=== PATIENT | male | born 1955 | race Caucasian/White ===

== ENCOUNTER 2020-01-28 06:42 | Outpatient (CLI) | payer BC ==
[2020-01-28 15:14] LABS: Hemoglobin 13.9 g/dL (14.0-18.0); Mean Corpuscular HGB CONC 34.6 G/DL (32.0-36.0); Mean Corpuscular Volume 89.7 fl (80.0-100.0); Mean Platelet Volume 10.2 fl (7.4-10.4); Platelet Count 175 10x3/uL (130-400); Red Blood Cell (RBC) Count 4.48 10x6/uL (4.40-5.80); White Blood Cell (WBC) Count 9.1 10x3/uL (4.5-11.0)
[2020-01-28 15:16] LABS: Bilirubin Neg (Negative); Blood, Urine Negative (Negative); Clarity Clear (Clear); Glucose, Urine (Dipstick) Normal (Negative); Ketone, Urine Negative (Negative); Leukocyte Negative (Negative); Nitrite Negative (Negative); Protein, Urine (Dipstick) 15 mg/dl (Neg-Trace); Urobilinogen Normal mg/dL (Less than 2)
[2020-01-28 15:23] LABS: Anion Gap 13 mmol/L (10-20); BUN (Urea Nitrogen) 16 mg/dL (8.4-25.7); Calc. Creatinine Clearance 0 mL/min (70-130); Calcium 9.5 mg/dL (7.8-10.44); Carbon Dioxide 27 mmol/L (23-31); Chloride 101 mmol/L (98-107); Glucose 132 mg/dL (80-115); Potassium 4.1 mmol/L (3.5-5.1); Sodium 137 mmol/L (136-145)
[2020-01-28 15:27] LABS: PTT 24.8 sec (22.0-33.0); Prothrombin Time 10.5 sec (9.5-12.1)
[2020-01-28 15:56] LABS: Bacteria/HPF None Seen HPF (None Seen); RBC/HPF None Seen HPF (0-3); Squamous Epithelial None Seen HPF (0-3); WBC/HPF None Seen HPF (0-3)
[2020-01-29 02:56] LABS: SARS-CoV-2 MS2 Positive; SARS-CoV-2 N Gene Negative; SARS-CoV-2 S Gene Negative; SARS-CoV-2 by NAA Not Detected (NotDetected); SARS-CoV-2 orf1ab Negative
== END 2020-01-28 06:43 | disposition home or self-care (01) ==
LOC: LABBT 06:42
PROVIDERS: ATTEND Urology
DX: Z01.818 Encounter for other preprocedural examination (principal); N40.1 Benign prostatic hyperplasia with lower urinary tract symptoms; N20.0 Calculus of kidney; E29.1 Testicular hypofunction; N48.6 Induration penis plastica; N52.02 Corporo-venous occlusive erectile dysfunction; Z20.828 Contact with and (suspected) exposure to other viral communicable diseases
CPT/HCPCS: 80048; 81001; 85027; 85610; 85730; 87086; 87635; 93005; 93010; U0003

== ENCOUNTER 2020-01-31 07:14 | Day surgery (SDC) | payer BC ==
[2020-01-30 08:59] VITALS: BMI 24.8
[2020-01-31] MEDS ORDERED: Levofloxacin 500 mg/D5W 100 ml Premix Bag ONE (07:17)
[2020-01-31] MEDS ORDERED: Midazolam HCl 2 mg/2 ml Vial ONE (07:45)
[2020-01-31] MEDS ORDERED: Fentanyl 100 MCG/2 ML VIAL ONE (07:45)
[2020-01-31] MEDS ORDERED: B & O ONE (08:01)
--- NOTE | 2020-01-31 08:56 | OP ---
DATE OF PROCEDURE: 01/31/2020 SERVICE: Urology. PREOPERATIVE DIAGNOSIS: BPH with urinary obstruction. POSTOPERATIVE DIAGNOSIS: BPH and urinary obstruction. PROCEDURE PERFORMED: UroLift procedure with 6 implants, 5 in patient, 1 misfire. INDICATIONS FOR PROCEDURE: Mr. Torres is a 65-year-old white male who initially presented to me with urinary complaints. On cystoscopy, he was noted to have a significant median lobe. He has been on Flomax and finasteride for a prolonged time, but after discussion of options, he elected to proceed forward with UroLift for improvement of urine flow and preservation of sexual side effects. Risks and benefits have been discussed, and he has agreed to proceed forward. DESCRIPTION OF PROCEDURE: After identification of armband and verification of consent, the patient was brought back to the operating room, where he underwent total intravenous anesthesia. He was then placed in a dorsal lithotomy position and prepped and draped in usual sterile fashion. After appropriate time-out, a lubricated 21-Andorran rigid cystoscope with visual obturator was passed through the urethra into the bladder and prostate. The prostate showed obstructive features as it had previously done on outpatient cystoscopy. The visual obturator was switched out for the first UroLift implant. The first implant was positioned proximal to the patient's left bladder neck by coming back 2 cm away from the bladder neck and then performing upward and lateral compression for about 20 degrees. Once this was achieved, the safety was released and then the blue trigger fired to deploy the Nitinol needle. The jackson trigger was squeezed to set the tension and deploy the capsular tab. The UroLift was then advanced forward until the white line could be seen in the keyhole, and then the blue back trigger released for the urethral end piece. This was then repeated on the patient's right bladder neck and then at the left and right apex. One of the implants at the apex had a misfire and had to be redone. At this point, the prostatic fossa was wide open, but the median lobe was occupying the majority of the urethral lumen. There was a better sulcus on the patient's left, so we elected to do compression toward the patient's right. Using a sweet method, the median lobe was compressed over to the contralateral aspect towards the right and withdrawn until the bladder neck could be seen in the camera. Once full compression, extreme angulation was performed to avoid bladder or bladder neck injury with the median lobe. The Nitinol needle was deployed, and then the UroLift implant completely performed within the prostatic lumen without evidence of injury to the bladder or ureters. Upon completion, the prostatic lumen was wide open. I felt very good that this patient should have a good urine flow, and cystoscope was then withdrawn and an 18-Andorran Aguilar catheter was placed back into the patient's bladder. 10 mL of sterile water was placed into the balloon. The patient had B and O suppository, placed in the rectum. He was then taken out of position, awakened, taken to PACU for recovery in stable condition. COMPLICATIONS: None. ESTIMATED BLOOD LOSS: Minimal. RETAINED TUBES AND DRAINS: 18-Andorran Aguilar catheter. SPECIMENS: None. IMPLANTS USED: Six. DISPOSITION: The patient will be discharged home after a void trial. He will then follow up with me on outpatient basis. Job ID: [id number]
[2020-01-31] MEDS ORDERED: HYDROcodone/Acetaminophen 5/325 mg Tablet ONE (08:59)
[2020-01-31] MEDS ORDERED: PROPOFOL 200 MG/20 ML VIAL ONE (09:51)
== END 2020-01-31 12:30 | disposition home or self-care (01) ==
LOC: SDC 07:14
PROVIDERS: ATTEND Urology
PROC: 0T7D8DZ Dilation of Urethra with Intraluminal Device, Via Natural or Artificial Opening Endoscopic (ICD-10-PCS; principal; 2020-01-31)
DX: N40.1 Benign prostatic hyperplasia with lower urinary tract symptoms (principal); N13.8 Other obstructive and reflux uropathy; I10 Essential (primary) hypertension; E78.5 Hyperlipidemia, unspecified; K21.9 Gastro-esophageal reflux disease without esophagitis; N40.0 Benign prostatic hyperplasia without lower urinary tract symptoms; Z79.899 Other long term (current) drug therapy
CPT/HCPCS: C1889; J1956; J2250; J2704; J3010

== ENCOUNTER 2021-12-23 16:17 | Inpatient (IN) | payer MEDICARE ==
[~2021-12-23 16:17] MED LIST: Iopamidol-370 76% 500 ML 1 ML ONE
[2021-12-23 16:54] LABS: #Basophils 0.1 thou/uL (0.0-0.2); #Monocytes 0.5 thou/uL (0.11-0.59); #Neutrophils 3.3 thou/uL (1.40-6.50); %Basophils 1.1 % (0.0-1.0); %Eosinophils 0.8 % (0.0-10.0); %Lymphocytes 20.9 % (21.0-51.0); %Monocytes 9.9 % (0.0-10.0); %Neutrophils 67.3 % (42.0-75.0); Hemoglobin 16.2 g/dL (14.0-18.0); Mean Corpuscular Hemoglobin 30.8 pg (27.0-31.0); Mean Corpuscular Volume 93.2 fl (78.0-98.0); Mean Platelet Volume 7.3 fL (7.4-10.4); Platelet Count 157 thou/uL (130-400); RBC Distribution Width 12.1 % (11.5-14.5); Red Blood Cell (RBC) Count 5.27 mill/uL (4.70-6.10); White Blood Cell (WBC) Count 4.9 thou/uL (4.8-10.8)
[2021-12-23 17:17] LABS: ALT (SGPT) 348 U/L (8-55); AST (SGOT) 156 U/L (5-34); Albumin 4.1 g/dL (3.4-4.8); Alkaline Phosphatase 335 U/L (40-110); Anion Gap 11 mmol/L (10-20); BUN (Urea Nitrogen) 11 mg/dL (8.4-25.7); Calc. Creatinine Clearance 0 mL/min (70-130); Calcium 9.3 mg/dL (7.8-10.44); Carbon Dioxide 32 mmol/L (23-31); Chloride 98 mmol/L (98-107); Estimated GFR 65; Globulin 2.8 g/dL (2.4-3.5); Glucose 120 mg/dL (80-115); Lipase 28 U/L (8-78); Potassium 4.8 mmol/L (3.5-5.1); Protein, Total 6.9 g/dL (5.8-8.1); Sodium 136 mmol/L (136-145)
[2021-12-23] MEDS ORDERED: Ondansetron ODT 4 MG TAB ONE (19:17)
[2021-12-23 19:25] LABS: HBCM Index 0.06 S/CO (0-0.79); HBSAg Index 0.27 S/CO (0-0.99); Hep A IgM AB Non-Reactive (NonReactive); Hep A IgM S/CO 0.13 S/CO (0-0.79); Hep B Surf Ag Non-Reactive S/CO (NonReactive); Hep C IgG Ab Non-Reactive (NonReactive); Hep C Index 0.07 S/CO (0-0.79); Hepatitis B Core IgM Abs Non-Reactive (NonReactive)
[2021-12-23 19:52] LABS: Bacteria/HPF None Seen HPF (None Seen); Bilirubin 1+ (Negative); Blood, Urine 3+ (Negative); Clarity Clear (Clear); Glucose, Urine (Dipstick) Normal (Negative); Ketone, Urine Negative (Negative); Leukocyte Negative Leu/uL (Negative); Nitrite Negative (Negative); Protein, Urine (Dipstick) Negative (Neg-Trace); RBC/HPF Greater than 50 HPF (0-3); Squamous Epithelial None Seen HPF (0-3); WBC/HPF 0-3 HPF (0-3)
[2021-12-23 19:53] LABS: Specific Gravity, Urine 1.056 (1.002-1.036)
[2021-12-23] MEDS ORDERED: Ondansetron PF 4 MG/2 ML Vial ONE (20:44)
[2021-12-23] MEDS ORDERED: Morphine 4 MG/ML VIAL ONE (20:44)
[2021-12-23] MEDS ORDERED: cefTRIAXone\\ROCEPHIN 1 GM VIAL ONE (21:48)
[2021-12-23] MEDS ORDERED: Ondansetron PF 4 MG/2 ML Vial IVP PRN (22:05)
[2021-12-23] MEDS ORDERED: Acetaminophen 325 MG TAB PO PRN (22:05)
[2021-12-23] MEDS ORDERED: HYDROcodone/Acetaminophen 10/325 mg Tablet PO PRN (22:46)
[2021-12-23] MEDS ORDERED: cefTRIAXone\\ROCEPHIN 1 GM in Sodium Chloride 0.9% 100 ML IVPB SCH (23:00)
[2021-12-23] MEDS ORDERED: metroNIDAZOLE 500 MG in Premix Bag 1 BAG IVPB SCH (23:30)
[2021-12-23] MEDS: Sodium Chloride 0.9% 1,000 ML IV SCH (23:59)
[2021-12-24 00:59] VITALS: BMI 23.7
[2021-12-24 01:45] LABS: SARS-CoV-2 NAA Rapid Test Not Detected (NotDetected)
[2021-12-24 05:44] LABS: PTT 27.2 sec (22.9-36.1); Prothrombin Time 13.6 sec (12.0-14.7)
[2021-12-24 05:49] LABS: #Eosinphils 0.1 thou/uL (0.0-0.7); #Lymphocytes 1.1 thou/uL (1.20-3.40); #Monocytes 0.4 thou/uL (0.11-0.59); #Neutrophils 3.3 thou/uL (1.40-6.50); %Basophils 0.4 % (0.0-1.0); %Eosinophils 1.2 % (0.0-10.0); %Monocytes 8.3 % (0.0-10.0); %Neutrophils 67.1 % (42.0-75.0); Hemoglobin 14.5 g/dL (14.0-18.0); Mean Corpuscular HGB CONC 32.7 g/dL (32.0-36.0); Mean Corpuscular Hemoglobin 30.8 pg (27.0-31.0); Mean Corpuscular Volume 94.2 fl (78.0-98.0); Mean Platelet Volume 7.7 fL (7.4-10.4); Platelet Count 131 thou/uL (130-400); White Blood Cell (WBC) Count 4.9 thou/uL (4.8-10.8)
[2021-12-24] MEDS: metroNIDAZOLE 500 MG in Premix Bag 1 BAG IVPB SCH ×3 (05:54→21:13)
[2021-12-24 06:07] LABS: ALT (SGPT) 231 U/L (8-55); AST (SGOT) 76 U/L (5-34); Albumin 3.3 g/dL (3.4-4.8); Alkaline Phosphatase 264 U/L (40-110); Anion Gap 11 mmol/L (10-20); BUN (Urea Nitrogen) 10 mg/dL (8.4-25.7); Bilirubin, Total 1.5 mg/dL (0.2-1.2); Calc. Creatinine Clearance 71 mL/min (70-130); Calcium 8.9 mg/dL (7.8-10.44); Carbon Dioxide 28 mmol/L (23-31); Chloride 100 mmol/L (98-107); Estimated GFR 73; Globulin 2.9 g/dL (2.4-3.5); Glucose 92 mg/dL (80-115); Potassium 4.2 mmol/L (3.5-5.1); Protein, Total 6.2 g/dL (5.8-8.1); Sodium 135 mmol/L (136-145)
[2021-12-24] MEDS ORDERED: Morphine 4 MG/ML VIAL SLOW IVP PRN (07:13)
[2021-12-24] MEDS ORDERED: Acetaminophen 500 MG TAB PO PRN (07:24)
[2021-12-24] MEDS: Tamsulosin HCl 0.4 MG CAP PO SCH (08:19)
[2021-12-24] MEDS: Senokot S 8.6-50 MG TAB PO SCH ×2 (08:19→20:30)
[2021-12-24] MEDS ORDERED: Enoxaparin Sodium 40 MG/0.4 ML SYRINGE SC SCH (09:00)
[2021-12-24] MEDS ORDERED: FLU VACC QS2022-23(65YR UP)/PF 240 MCG/0.7 ML SYRINGE IM ONE (09:00)
[2021-12-24] MEDS ORDERED: Bupivacaine/Epinephrine 0.25% 30 ML VIAL ONE (10:22)
[2021-12-24] MEDS ORDERED: fentaNYL PF 100 MCG/2 ML SYRINGE ONE ×2 (10:25→10:41)
[2021-12-24] MEDS ORDERED: SUGAMMADEX SODIUM 200 MG/2 ML VIAL ONE (10:42)
[2021-12-24] MEDS ORDERED: Ketorolac Tromethamine 30 MG/ML VIAL ONE (11:40)
[2021-12-24] MEDS ORDERED: Dexamethasone 20 MG/5 ML VIAL ONE (11:40)
[2021-12-24] MEDS ORDERED: ePHEDrine 50 MG/ML VIAL ONE (11:40)
[2021-12-24] MEDS ORDERED: Rocuronium Bromide 10 MG/ML (10ML VIAL) ONE (11:40)
[2021-12-24] MEDS ORDERED: Ondansetron PF 4 MG/2 ML Vial ONE (11:40)
[2021-12-24] MEDS ORDERED: PROPOFOL 200 MG/20 ML VIAL ONE (11:40)
[2021-12-24] MEDS ORDERED: Ondansetron HCl/PF 4 MG/2 ML Vial IVP PRN (12:43)
[2021-12-24] MEDS ORDERED: HYDROmorphone 2 MG/ML VIAL SLOW IVP PRN (12:43)
[2021-12-24] MEDS ORDERED: Promethazine HCl 25 MG/ML VIAL IM PRN (12:43)
[2021-12-24] MEDS ORDERED: Promethazine HCl 25 MG/ML VIAL IVPB PRN (12:43)
[2021-12-24] MEDS ORDERED: FENTANYL 50 MCG/ML 1 ML VIAL ONE ×3 (12:50→13:39)
[2021-12-24] MEDS: Sodium Chloride 0.9% 1,000 ML IV SCH (14:56)
[2021-12-24] MEDS: HYDROcodone/Acetaminophen 7.5/325 mg Tablet PO PRN (16:51)
[2021-12-24] MEDS ORDERED: cefTRIAXone\\ROCEPHIN 2 GM in Sodium Chloride 0.9% 100 ML IVPB SCH (21:00)
[2021-12-25] MEDS: Sodium Chloride 0.9% 1,000 ML IV SCH (05:23)
[2021-12-25] MEDS: metroNIDAZOLE 500 MG in Premix Bag 1 BAG IVPB SCH (05:24)
[2021-12-25] MEDS: HYDROcodone/Acetaminophen 7.5/325 mg Tablet PO PRN (05:55)
[2021-12-25 06:12] LABS: #Monocytes 0.6 thou/uL (0.11-0.59); #Neutrophils 10.8 thou/uL (1.40-6.50); %Basophils 0.3 % (0.0-1.0); %Lymphocytes 7.9 % (21.0-51.0); %Monocytes 5.1 % (0.0-10.0); %Neutrophils 86.6 % (42.0-75.0); Hemoglobin 14.1 g/dL (14.0-18.0); Mean Corpuscular HGB CONC 32.9 g/dL (32.0-36.0); Mean Corpuscular Hemoglobin 30.8 pg (27.0-31.0); Mean Corpuscular Volume 93.5 fl (78.0-98.0); Mean Platelet Volume 7.6 fL (7.4-10.4); Platelet Count 155 thou/uL (130-400); RBC Distribution Width 11.8 % (11.5-14.5); Red Blood Cell (RBC) Count 4.59 mill/uL (4.70-6.10); White Blood Cell (WBC) Count 12.5 thou/uL (4.8-10.8)
[2021-12-25 06:37] LABS: ALT (SGPT) 155 U/L (8-55); AST (SGOT) 44 U/L (5-34); Albumin 3.4 g/dL (3.4-4.8); Alkaline Phosphatase 219 U/L (40-110); Anion Gap 14 mmol/L (10-20); BUN (Urea Nitrogen) 15 mg/dL (8.4-25.7); Bilirubin, Total 1.1 mg/dL (0.2-1.2); Calc. Creatinine Clearance 75 mL/min (70-130); Carbon Dioxide 27 mmol/L (23-31); Chloride 100 mmol/L (98-107); Estimated GFR 78; Globulin 2.8 g/dL (2.4-3.5); Glucose 132 mg/dL (80-115); Potassium 4.5 mmol/L (3.5-5.1); Protein, Total 6.2 g/dL (5.8-8.1); Sodium 136 mmol/L (136-145)
[2021-12-25 09:29] VITALS: BP 149/68; TEMP 98
[2021-12-25] MEDS: Tamsulosin HCl 0.4 MG CAP PO SCH (09:43)
[2021-12-25] MEDS: Senokot S 8.6-50 MG TAB PO SCH (09:44)
== END 2021-12-25 11:46 | disposition home or self-care (01) | DRG 419 ==
LOC: ERS 16:17 → SJJU 21:56
PROVIDERS: ADMIT Surgery; ATTEND Family Medicine
PROC: 0FT44ZZ Resection of Gallbladder, Percutaneous Endoscopic Approach (ICD-10-PCS; principal; 2021-12-24)
DX: K80.00 Calculus of gallbladder with acute cholecystitis without obstruction (principal); Z20.822 Contact with and (suspected) exposure to COVID-19; I10 Essential (primary) hypertension; K21.9 Gastro-esophageal reflux disease without esophagitis; N40.0 Benign prostatic hyperplasia without lower urinary tract symptoms; G89.29 Other chronic pain; M54.9 Dorsalgia, unspecified; F41.9 Anxiety disorder, unspecified; R31.9 Hematuria, unspecified; N20.0 Calculus of kidney; Z28.21 Immunization not carried out because of patient refusal; Z79.899 Other long term (current) drug therapy; Z98.890 Other specified postprocedural states; Z83.3 Family history of diabetes mellitus
CPT/HCPCS: 36415; 47532; 74177; 76705; 80053; 80074; 81003; 81015; 83690; 84484; 85025; 85610; 85730; 88304; 96365; 96375; C1889; J0696; J1100; J1885; J2270; J2405; J2704; J3010; J3490; J7050; Q0162; Q9967; U0002

== ENCOUNTER 2022-08-11 08:03 | Outpatient (CLI) | payer MEDICARE | END 2022-08-11 08:04 | disposition home or self-care (01) | LOC: BICULT 08:03 | PROVIDERS: ATTEND Internal Medicine Cardiovascular Disease | DX: I10 Essential (primary) hypertension (principal); N28.9 Disorder of kidney and ureter, unspecified | CPT/HCPCS: 76770; 93975 ==

== ENCOUNTER 2023-05-02 09:51 | Outpatient (CLI) | payer MEDICARE | END 2023-05-02 09:52 | disposition home or self-care (01) | LOC: RAD 09:51 | PROVIDERS: ATTEND Internal Medicine | DX: R06.00 Dyspnea, unspecified (principal) | CPT/HCPCS: 71046 ==

== ENCOUNTER 2024-01-26 09:09 | Outpatient (CLI) | payer MEDICARE | END 2024-01-26 09:10 | disposition home or self-care (01) | LOC: BICMAMMO 09:09 | PROVIDERS: ATTEND Internal Medicine | DX: Z13.820 Encounter for screening for osteoporosis (principal); Z79.52 Long term (current) use of systemic steroids | CPT/HCPCS: 77080 ==

== ENCOUNTER 2024-12-25 12:40 | Day surgery (SDC) | payer OTHER ==
[2024-12-24 15:07] VITALS: BMI 22.3
[2024-12-25] MEDS ORDERED: CEFAZOLIN 2 GM VIAL ONE (14:30)
[2024-12-25] MEDS ORDERED: fentaNYL PF 100 MCG/2 ML SYRINGE ONE (14:30)
[2024-12-25] MEDS ORDERED: Lidocaine 1% PF 5 ML VIAL ONE (14:32)
[2024-12-25] MEDS ORDERED: Bacitracin Zinc Ointment 30 gm TUBE ONE (15:01)
[2024-12-25] MEDS ORDERED: Glycopyrrolate 0.2 MG/ML 5 ML SYRINGE ONE (15:26)
[2024-12-25] MEDS ORDERED: PROPOFOL 200 MG/20 ML VIAL ONE (15:26)
[2024-12-25 15:41] LABS: #Basophils 0.03 10x3/uL (0.0-0.2); #Eosinophils 0.10 10x3/uL (0.0-0.7); #Monocytes 0.68 10x3/uL (0.11-0.59); #Neutrophils 2.77 10x3/uL (1.40-6.50); %Basophils 0.6 % (0.0-1.0); %Eosinophils 2.0 % (0.0-10.0); %Lymphocytes 24.3 % (21.0-51.0); %Monocytes 13.8 % (0.0-10.0); %Neutrophils 56.3 % (42.0-75.0); Hematocrit 32.2 % (42.0-52.0); Hemoglobin 10.4 g/dL (14.0-18.0); Mean Corpuscular Hemoglobin 29.6 pg (27.0-31.0); Mean Corpuscular Volume 91.7 fL (78.0-98.0); Platelet Count 180 10x3/uL (130-400); Red Blood Cell (RBC) Count 3.51 mill/uL (4.70-6.10); White Blood Cell (WBC) Count 4.93 10x3/uL (4.8-10.8)
[2024-12-25] MEDS ORDERED: PHENYLEPHRINE-NS 100 MCG/ML 10 ML SYRINGE ONE (15:45)
[2024-12-25] MEDS ORDERED: Ondansetron PF 4 MG/2 ML Vial ONE (16:37)
[2024-12-25] MEDS ORDERED: Ketorolac Tromethamine 30 MG (1 mL) VIAL ONE (17:16)
[2024-12-25] MEDS ORDERED: HYDROcodone/Acetaminophen 5/325 mg Tablet ONE (18:06)
== END 2024-12-25 18:50 | disposition home or self-care (01) ==
LOC: SDC 12:40
PROVIDERS: ATTEND Orthopaedic Surgery Hand Surgery
PROC: 0LB80ZZ Excision of Left Hand Tendon, Open Approach (ICD-10-PCS; principal; 2024-12-25)
PROC: 0HQGXZZ Repair Left Hand Skin, External Approach (ICD-10-PCS; 2024-12-25)
DX: S61.207A Unspecified open wound of left little finger without damage to nail, initial encounter (principal); S60.457A Superficial foreign body of left little finger, initial encounter; G56.00 Carpal tunnel syndrome, unspecified upper limb; G47.33 Obstructive sleep apnea (adult) (pediatric); X58.XXXA Exposure to other specified factors, initial encounter
CPT/HCPCS: 15002; 15240; 85025; A6258; J0665; J1100; J1885; J2405; J2704; J3010